=== PATIENT | male | born 1945 | race African-American/Black ===

== ENCOUNTER 2018-08-31 11:19 | Emergency (ER) | payer OTHER, MEDICAID ==
[~2018-08-31] VITALS: Ht 175.3 cm; Wt 88.0 kg
[2018-08-31 13:42] LABS: BASOPHILS % 0.2 % (0.0-2.0); EOSINOPHILS % 0.7 % (0.0-5.0); HEMATOCRIT. 39.4 % (42.0-52.0); HEMOGLOBIN. 13.2 g/dL (14.0-18.0); LYMPHOCYTES % 11.7 % (20.0-50.0); MEAN CORPUSCULAR HEMOGLOBIN 33.2 pg (28.0-32.0); MEAN CORPUSCULAR VOLUME 98.9 fL (80.0-94.0); MEAN PLATELET VOLUME 8.9 fl (7.4-10.4); MONOCYTES % 8.7 % (2.0-8.0); NEUTROPHILS % 78.7 % (40.0-76.0); PLATELET 294 x1000/uL (130-400); RED BLOOD CELL COUNT 3.98 mill/uL (4.7-6.1); RED CELL DISTRIBUTION WIDTH 13.2 % (11.6-14.6)
[2018-08-31 14:04] LABS: CHLORIDE 108 mEq/L (98-107)
[2018-08-31 15:10] VITALS: BP 145/84
== END 2018-08-31 16:32 | disposition home or self-care (01) ==
LOC: ER 12:52
DX: R42 Dizziness and giddiness (principal)
CPT/HCPCS: 36415; 71045; 84484; 93005; 99284